=== PATIENT | female | born 1965 | race Caucasian/White ===

== ENCOUNTER 2017-03-29 04:55 | Observation (INO) | payer BC ==
[2017-03-23 11:29] VITALS: BMI 29.0
[2017-03-29] VITALS (8 sets, daily range): BP systolic 97–116; BP diastolic 61–78; PULSE 59–81; TEMP 36.4–36.7; O2SAT 96–100; Ht 165.1 cm; Wt 80.0 kg
[~2017-03-29] VITALS: Ht 165.1 cm; Wt 80.0 kg
[~2017-03-29 04:55] MED LIST: CEPH-571 PO; IBUP-1428 PO; OXYC7.5T65 PO
[2017-03-29] MEDS ORDERED: CEFAZOLIN 2000 MG/60 ML D5W 60 ML IV SCH (06:00)
[2017-03-29] MEDS ORDERED: LACTATED RINGER'S 1000ML 1,000 ML IV SCH (06:00)
[2017-03-29] MEDS ORDERED: SODIUM CHLORIDE 0.9% 1000ML IV SCH (06:00)
[2017-03-29] MEDS ORDERED: MEPIVACAINE HCL 1.5% 30 ML VIAL ONE (06:26)
[2017-03-29] MEDS ORDERED: CLONIDINE HCL 100 MCG/ML SYRINGE ONE (06:26)
[2017-03-29] MEDS ORDERED: BUPIVACAINE 0.5 % 5 MG/1 ML PF 10ML VIAL ONE (06:26)
[2017-03-29] MEDS ORDERED: ALBUTEROL 0.083% NEBU SOLN 3 ML VIAL INH STA (06:46)
[2017-03-29] MEDS ORDERED: BUPIVACAINE 0.5 % 5 MG/1 ML MPF 30ML VIAL ONE (06:56)
[2017-03-29] MEDS ORDERED: FENTANYL CITRATE INJ 50 MCG/1 ML 2 ML VIAL ONE ×2 (07:07→08:00)
[2017-03-29] MEDS ORDERED: MIDAZOLAM HCL 1 MG/ML 2ML VIAL ONE (07:07)
[2017-03-29] MEDS ORDERED: PROPOFOL IV EMULSION 10 MG/ML 20 ML VIAL IV ONE ×2 (07:07→09:06)
--- NOTE | 2017-03-29 07:11 | History & Physical Bridge - [place] ---
H&P Re-Evaluation Bridge Note: I have examined the patient, reviewed the History & Physical and in the interval since the performance of the History & Physical I have noted the following changes of clinical significance: No changes noted
--- NOTE | 2017-03-29 07:12 | HISTORY & PHYSICAL EXAMINATION ---
DATE OF ADMISSION: 03/29/2017 HISTORY OF PRESENT ILLNESS: A 51-year-old female presents for preop evaluation. Pain is located in the ankle on the right heel. The condition is graded an 8 on a 10 point scale, gradually worsening over time. Pain is described as aching, burning, stabbing, throbbing and tingling. Condition was first noted in the fall of 2015. She notes conservative treatment has failed for the past several months. She first seen in our office in December 2016. She denies any incident event or history for this condition. She notes these symptoms gradually occurred over time. Associated signs and symptoms include swelling on the right. She indicates elevation does not change, ice does not changed the condition, injection does not change the condition. Oral medication has improved; however, has not resolved the condition. Physical therapy has not improved and rest has done little to help her overall condition. Due to the nature and severity of this condition, she is requesting surgical intervention. Past treatments and tests for this included x-rays, EMG, NCV, elevation, injection, oral medication, physical therapy. PAST SURGICAL HISTORY: Appendectomy; hysterectomy; carpal tunnel, left and right; and elbow surgery. PAST MEDICAL HISTORY: Unremarkable. MEDICATIONS: Clinoril. ALLERGIES: No known medical allergies. FAMILY HISTORY: Unremarkable. SOCIAL HISTORY: The patient admits to tobacco use. She relates a smoking history of [id number]. REVIEW OF SYSTEMS: Unremarkable except chief complaint. PHYSICAL EXAMINATION: VITAL SIGNS: Height 5 feet 5 inches, weight 172 pounds. Body mass index 29. CONSTITUTIONAL: The patient appears well-developed and nourished with good attention to body grooming and habitus. HEAD AND FACE: Head is normocephalic and atraumatic without any gross head, face, or neck masses. EYES: Conjunctival and pupillary reaction to light and accommodation are normal. EARS, NOSE, MOUTH, AND THROAT: Show inspection, no abnormalities. NECK: Neck is supple. Trachea is midline without any adenopathy or crepitance palpable. CARDIOVASCULAR: Normal S1, S2 without murmur, gallops, rubs, or clicks noted. Cardiovascular exam is normal. RESPIRATORY: Chest is symmetric. No scars are visible. No port or pacemaker. LUNGS: Clear to auscultation bilaterally and equal. GASTROINTESTINAL: Abdominal organs, bladder, and kidneys show no abnormalities, masses, tenderness, or rigidity. LOWER EXTREMITIES: DP and PT palpable. Ecchymosis is present. There is swelling over the medial aspect of the right foot showing mild edema and varicosities are present. DERMATOLOGIC: No skin rash, subcutaneous nodules, lesions, or ulcers are observed. NEUROLOGICAL: Touch, pin, vibratory, and proprioception sensations are decreased over the tarsal tunnel. Epicritic sensation over the tibial nerve L4 and S5 is diminished. Bilateral patellar reflexes 1/4. MUSCULOSKELETAL: Muscle tone is normal. Muscle strength 5/5 all groups tested. Examination of the heel shows improved pain over the plantar medial aspect of the calcaneus on the right. Decreased ankle joint range of motion with knee flexed and extended. LABORATORY DATA: Blood work on 02/03/2017. CBC with diff, C-reactive protein, ESR, HLA-B27, rheumatoid factor within normal limits. DEO showed a pattern of homogeneous, DEO being positive, HLA-B27 was negative. Nerve conduction study revealed right tibial showing prolonged distant latency. Right medial calcaneal nerve showed reduced amplitude right tarsal tunnel syndrome. No evidence of myopathy, neuropathy or distal mononeuropathy such as calcaneal neuropathy. IMPRESSION: 1. Plantar fasciitis, right. 2. Heel spur syndrome, right. 3. Equinus. 4. 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 EMG shows right tarsal tunnel syndrome, abnormal sensation, paraesthesia, difficulty walking, pain in lower extremity, varicosities lower extremity. Positive EMG and NCV, tarsal tunnel, right tibial motor nerve and medial calcaneal sensory nerve involvement, positive DEO. PLAN: I discussed the deformity at length and describing tarsal tunnel is a type of compression neuropathy that results in compression of the posterior tibial nerve as it runs through a narrow passage inside the ankle down the heel, entrapment of the nerve can be caused by a range of localized injury inflammation due to mechanical irritation for some impinging anatomical alignment. Pain is felt in the ankle extending up and down into the leg and the arch of the foot based on the anatomy. Conservative treatment including removing the external factors, steroid injection over the point of entrapment, nonsteroidals and immobilization. We also discussed the anatomy at length tibial nerve running in a smaller common peroneal nerve that makes up the sciatic nerve trunk. As the sciatic nerve trunk descends to the posterior aspect of the thigh into the popliteal fossa where it splits into 2 common parts, the tibial nerve continues to the distal margin of the popliteals popliteal fossa between the heads of the gastrocnemius the nerve descends to the back of the leg posterior tibial vessels between the medial malleolus and the calcaneus. The tibial nerve lies deep to flexor retinaculum and gives off the medial calcaneal branches before it bifurcates into its terminal branches the medial and plantar aspect of the heel. We discussed the innervation of tibial nerve and plantar aspect of the heel and how innervation could cause an entrapment that can occur anywhere from the course as this is running down the leg. This entrapment is often caused by direct penetrating trauma and most frequent area of entrapment occurs where the nerve runs deep to ligament. If release is not performed they can effect the sensory and motor functions. We discussed the possible etiologies. Differential diagnosis is also included is plantar fasciitis, heel pad atrophy, seronegative arthritis inflammation, tarsal tunnel syndrome, medial calcaneal neuritis, heel spurs, calcaneus stress fracture, periosteal inflammation entrapment of first branch of the lateral plantar nerve. We also discussed the anatomy and recommended follow up with the facilities operations technician prior to surgery; however, patient notes she is too uncomfortable and it moved this appointment several times. She wants to proceed with surgical intervention, specifically as the EMG and NCV show this localized nerve at this area. We discussed; 1. Tarsal tunnel release of the right leg. 2. Medial calcaneal nerve release, right foot. 3. Endoscopic plantar fasciotomy, right foot. Complications discussed in detail with patient including pain, infection, swelling that may not be excessive, pins and needles feeling, numbness, metatarsalgia, excessive bleeding, delay or nonhealing of bone, delay or nonhealing of skin, enlarged scar, failure of the procedure, reoccurrence or worsening condition which may not require further surgery, adverse reaction to anesthesia, allergic reaction to suture or other implant material, loss of toe, foot, or leg, flail toe, stiff toe, short toe, elevated toe, transfer lesion or callus, peripheral neurovascular complications such as phlebitis, damage to nerves or vascular structures, severe chronic pain, chronic nerve pain or damage, medical complications. The patient will be required to be nonweightbearing in a cast for a minimum of 6-8 weeks followed by weightbearing cast immobilization for 2-4 weeks and not return to dress shoe for 12-16 weeks depending on the postop edema. The patient is aware this is an elective type procedure and I recommend a second opinion. The patient will return to the office for postop check or sooner if medically necessary. Instructed to keep the dressing clean, dry and intact until seen at the office. At time of the preoperative appointment, prescriptions for Keflex and Percocet were dispensed. MTDD
[2017-03-29] MEDS ORDERED: LIDOCAINE HCL 1% 20 ML VIAL ONE ×2 (07:52→08:06)
[2017-03-29] MEDS ORDERED: DEXAMETHASONE SOD INJ 4 MG/ML VIAL ONE (09:06)
[2017-03-29] MEDS ORDERED: LIDOCAINE HCL 2% 2 ML VIAL (20MG/ML) ONE (09:06)
[2017-03-29] MEDS ORDERED: ONDANSETRON INJ 2 MG/ML 2 ML VIAL ONE (09:06)
[2017-03-29] MEDS ORDERED: HYDROmorphone INJ 2 MG/ML SYR/VIAL ONE (09:58)
[2017-03-29] MEDS ORDERED: PROMETHAZINE HCL INJ 12.5 MG in SODIUM CHLORIDE 0.9% 50ML 50 ML IV PRN (10:00)
[2017-03-29] MEDS ORDERED: LABETALOL HCL IV 5 MG/ML 20ML IV PRN (10:00)
[2017-03-29] MEDS ORDERED: NALOXONE HCL 0.4 MG/1 ML VIAL/CARP IV PRN (10:00)
[2017-03-29] MEDS ORDERED: EpHEDrine SULFATE INJ 50 MG/ML AMP IV PRN (10:00)
[2017-03-29] MEDS ORDERED: ONDANSETRON INJ 2 MG/ML 2 ML VIAL IV PRN ×2 (10:00→15:30)
[2017-03-29] MEDS ORDERED: HYDROmorphone INJ 1 MG/ML SYR IV PRN (10:00)
[2017-03-29] MEDS ORDERED: ATROPINE SULFATE 0.1 MG/ML 5ML SYR IV PRN (10:00)
[2017-03-29] MEDS ORDERED: FLUMAZENIL 0.1 MG/1 ML 10 ML VIAL IV PRN (10:00)
[2017-03-29] MEDS ORDERED: KETOROLAC TROMETHAMINE 30 MG/ML VIAL ONE (10:16)
[2017-03-29] MEDS ORDERED: HYDROmorphone INJ 1 MG/ML SYR ONE (10:17)
[2017-03-29] MEDS ORDERED: KETOROLAC TROMETHAMINE 30 MG/ML VIAL IV STA (10:17)
[2017-03-29] MEDS ORDERED: HYDROmorphone INJ 2 MG/ML SYR/VIAL IV PRN (10:30)
--- NOTE | 2017-03-29 10:46 | Anesthesiology Progress Note ---
Anesthesia Post Op Note Date & Time March 29, 2017 at 10:45 Vital Signs Pain Intensity: 6 Vital Signs Past 12 Hours Date Time Temp Pulse Resp B/P Pulse Ox O2 Delivery O2 Flow Rate FiO2 03/29/17 10:35 76 16 105/59 99 Nasal Cannula 2 03/29/17 10:25 83 16 116/62 99 Nasal Cannula 2 03/29/17 10:15 77 16 109/65 97 Nasal Cannula 2 03/29/17 10:05 81 16 113/71 99 Mask 10 03/29/17 09:55 83 16 117/63 99 Mask 10 03/29/17 09:48 36.2 93 16 119/62 99 Mask 10 03/29/17 06:53 59 14 96 Room Air 03/29/17 05:45 36.5 65 20 116/67 96 Room Air Notes Mental Status: alert / awake / arousable, participated in evaluation Pt Amnestic to Procedure: Yes Nausea / Vomiting: adequately controlled Pain: adequately controlled Airway Patency, RR, SpO2: stable & adequate BP & HR: stable & adequate Hydration State: stable & adequate Anesthetic Complications: no major complications apparent
--- NOTE | 2017-03-29 11:01 | OPERATIVE REPORT ---
DATE OF OPERATION: 03/29/2017 SURGEON: Judie Valdez DPM PREOPERATIVE DIAGNOSES: 1. Plantar fasciitis, right. 2. Heel spur syndrome, right. 3. Tarsal tunnel, right. 4. Medial calcaneal sensory nerve neuritis. POSTOPERATIVE DIAGNOSES: Same. PROCEDURES: 1. Tarsal tunnel release, right leg. 2. Medial calcaneal nerve release, right foot, neuroplasty. 3. Endoscopic plantar fasciotomy, right. HEMOSTASIS: Pneumatic thigh tourniquet inflated to 350 mmHg for a total tourniquet time of 26 minutes. ESTIMATED BLOOD LOSS: 25 mL. MATERIALS: 2-0, 3-0 Vicryl, 4-0 nylon and 5-0 PDS. FINDINGS: There was a large venous congestion noted around the jyoti pedis with arterial involvement and venous involvement, large amount of scarring, constricting opening of the posterior tibial nerve, prominent band of plantar fascia. DESCRIPTION OF PROCEDURE: The patient was brought to the OR and placed on the OR table in supine position upon completion of a nerve block in the preoperative holding by anesthesia department and general anesthesia, a well-padded tourniquet was applied to the right extremity. The extremity was scrubbed, prepped and draped in the usual aseptic fashion. Due to movement on the table, an additional 30 mL of 1% lidocaine plain were performed posterior tibial nerve and an ankle block. Attention was directed to the plantar medial between the relaxed skin tension lines and plantar fascia aspect on the medial aspect. A small stab incision was made, most superior and inferior aspects of the plantar fascia were identified, a portal was created from medial to lateral, small exit area lateral. The camera was placed in the area. The plantar fascia was well visualized and incised. This area was irrigated. The portal was recreated for any additional fibers after being rotated 180 degrees and the plantar fascia band was incised, some small accessory fibers that already noted. The bone was copiously lavaged with normal saline and closure began of deep structures using 3-0 Vicryl in a box stitch technique. Skin margins closed using 4-0 nylon. Attention at this time was directed to the tarsal tunnel. Great care was taken to examine the jyoti pedis and a groove protector was used to resect the retinaculum over this area. Dissection of the tarsal tunnel was carried out to the point where the medial plantar nerve passes between abductor hallucis and the spring ligament and plantar nerve passes through the abductor and quadratus plantae. It should be noted that the groove protector was identified in the third compartment of leg more proximally. It should also be noted that the pneumatic ankle tourniquet was released prior to incising of the area. It should be noted directly over the jyoti pedis there was significant amount of scarring. Venous and arterial congestion hand ties where used to tie off any arterial branches as well as cautery used over some small venous branches over this area. The nerve was completely free and irrigated well. All bleeding was controlled prior to closure. Closure began using 3-0 Vicryl in a box stitch technique. Prior to this, a 2-0 Vicryl was used to slightly repair the retinaculum; however, this was not repaired end-to-end the entire way throughout the tarsal tunnel and was only repaired more proximally where it was identified for the third canal. Deep structures were closed using 3-0 Vicryl. Superficial skin closure began with 4-0 nylon and 5-0 PDS in a subcuticular fashion. Dry sterile dressing was applied with Adaptic, 4 x 4's, Kerlix and a well-padded BK splint. The patient tolerated the procedure and anesthesia well without complications, transported to recovery room with vital signs stable and neurovascular status intact. I attest to the content of the Intraoperative Record and any orders documented therein. Any exceptio ns are noted below.
[2017-03-29] MEDS ORDERED: IV FLUIDS COMPLETED PRN (11:30)
[2017-03-29] MEDS ORDERED: NURSING VERBAL MED ORDER ONE (15:15)
[2017-03-29] MEDS: CALCIUM CARBONATE 500 MG CHEWABLE PO PRN ×3 (16:01→23:56)
[2017-03-29] MEDS: OXYCODONE/ACETAMINOPHEN 5-325 TAB PO PRN (19:00)
[2017-03-29] MEDS: CEFAZOLIN IV 1,000 MG in DEXTROSE 5% 50ML 50 ML IV SCH (20:25)
[2017-03-30] MEDS: CEFAZOLIN IV 1,000 MG in DEXTROSE 5% 50ML 50 ML IV SCH (03:48)
[2017-03-30 04:09] VITALS: BP 105/64; PULSE 68; TEMP 36.6; O2SAT 96
[2017-03-30 06:54] VITALS: BP 93/59; PULSE 65; TEMP 36.8; O2SAT 95
[2017-03-30 08:13] VITALS: BP 93/59; PULSE 65; TEMP 36.8; O2SAT 95
--- NOTE | 2017-03-30 08:44 | PROGRESS NOTE ---
DATE: 03/30/2017 HISTORY OF PRESENT ILLNESS: The patient is seen at bedside postoperative day 1. Resting comfortably, denies fevers, chills and night sweats. Eating and voiding well. PHYSICAL EXAMINATION: VITAL SIGNS: Stable. LUNGS: Clear to auscultation. ABDOMEN: Soft, nontender. Positive bowel sounds. EXTREMITIES: Lower extremity dressing clean, dry and intact over the cast. IMPRESSION: Status post endoscopic plantar fasciotomy, tarsal tunnel release, right lower extremity postoperative day #1. PLAN: The patient was admitted postoperatively for pain control and her short term disability as this would not cover unless she was admitted to the hospital following the procedure. She notes her pain is well controlled, and we will discharge home, nonweightbearing right lower extremity and follow up in my office in 1-2 weeks. TIFFANI
--- NOTE | 2017-03-30 09:39 | Discharge Instructions ---
Discharge Instructions Date of Service March 30, 2017. Admission Reason for Admission: Tarsal Tunnel Medial Calcaneal Nerve Entrapment Ri Discharge Discharge Diagnosis / Problem: same as above Discharge Goals Goal(s): Decrease discomfort, Improve function Activity Recommendations Activity Limitations: as noted below (Patient is to be non weightbearing in surgical shoes and is to be followed up in our office next week) Lifting Limitations: until after follow-up appointment Exercise/Sports Limitations: until after follow-up appointment Shower/Bathe: keep incision dry Driving or Machine Use: not until patient is cleared for weightbearing Weightbearing Status: Right non-weightbearing (in surgical shoe at all times) . Instructions / Follow-Up Instructions / Follow-Up Medications: * Resume previous medications unless instructed by your surgeon. * Take your medications as prescribed. Call our office ([phone]) at any time, if you experience severe pain that does not subside shortly after taking your pain medication. Activity: * Do not put any standing weight on your operated foot/ankle. Use the crutches or walker as instructed. Special Care: * Keep your bandage clean and dry. Do not remove your bandage unless otherwise instructed. A small amount of blood may appear on the bandage over the surgical site. Call our office ([phone]) if you bandage becomes blood-soaked or wet. * Elevate your operated foot/ankle on pillows, above the level of your heart, as often as possible during the first 2-3 days following surgery. Keep your knee flexed slightly with a pillow under your knee when you elevate your foot/ankle. * Apply a ice bag to your foot/ankle over the operative site for 20-30 minutes out of each hour while you are awake. Do not allow the ice bag to directly contact bare skin. * Avoid bumping or handling any pins visible in your toes. If any pin feels or appears loose, call the office ([phone]). * Take your oral temperature in the morning and at bedtime. Call our office ([phone]) if your temperature rises above 101 degrees Fahrenheit. Call your surgeon's office at ([phone]) for any problems or concerns such as excessive bleeding and/or pain unrelieved by your prescribed pain medications. If you have any questions, please do not hesitate to ask them. Avoid all tobacco products. If you need help to stop smoking, call [place]'s FREE QUITLINE at . This is a free call. Follow-up: Follow-up with Dr. Valdez Current Hospital Diet Patient's current hospital diet: Regular Diet Discharge Diet Recommended Diet: Regular Diet Fluid Restriction: None Procedures Procedures Performed: Right Foot Endoscopic Planter Fasciotomy; Medial Calcaneal Nerve Release; Tarsal Tunnel Release Pending Studies Studies pending at discharge: no Work Instructions Return To Work: after follow-up (after released from our office and when patient is out of surgical shoe) Medical Emergencies . Who to Call and When: Medical Emergencies: If at any time you feel your situation is an emergency, please call 911 immediately. . Non-Emergent Contact Non-Emergency issues call your: Primary Care Provider Call Non-Emergent contact if: you have a fever . "Provider Documentation" section prepared by Judie Goss. . VTE Core Measure Inpt VTE Proph given/why not?: Treatment not indicated
[2017-03-30] MEDS: OXYCODONE/ACETAMINOPHEN 5-325 TAB PO PRN (10:11)
[2017-03-30] MEDS ORDERED: SODIUM CHLORIDE 0.9% 1000ML 1,000 ML IV SCH (10:30)
--- NOTE | 2017-04-07 09:59 | DISCHARGE SUMMARY ---
PROCEDURES PERFORMED: Status post tarsal tunnel release right leg, medial calcaneal nerve release right foot, neuroplasty, endoscopic plantar fasciotomy right. ACTIVITIES: Nonweightbearing. HOSPITAL COURSE: The patient underwent elective surgery to her right lower extremity on 03/29/2017 and due to short term disability starting after hospital admission and for pain control the patient was admitted for observation. Pain was well controlled. She was discharged home. Will follow up in 1 week.
== END 2017-03-30 10:47 | disposition home or self-care (01) ==
LOC: ENRESERVTM → ENRESERVDT → C.ACU 04:55 → C.3E 10:32
PROVIDERS: ADMIT Podiatrist Foot & Ankle Surgery; ATTEND Podiatrist Foot & Ankle Surgery
DX: M72.2 Plantar fascial fibromatosis (principal); G57.51 Tarsal tunnel syndrome, right lower limb; M77.31 Calcaneal spur, right foot; M21.6X1 Other acquired deformities of right foot; Z90.89 Acquired absence of other organs; Z90.710 Acquired absence of both cervix and uterus; J44.9 Chronic obstructive pulmonary disease, unspecified; E66.9 Obesity, unspecified; F17.200 Nicotine dependence, unspecified, uncomplicated